=== PATIENT | male | born 1980 | race Caucasian/White ===

== ENCOUNTER 2018-07-26 10:17 | Emergency (ER) | payer OTHER ==
[~2018-07-26] VITALS: Ht 172.7 cm; Wt 99.8 kg
[~2018-07-26 10:17] MED LIST: CLON.5 PO; CLON1; CRUTCH3 USE; DICL100ER PO; DOXY100 PO; FEXPSEER; GABA300; HYDACE5; IBUP800 PO; KETAMINE; LAMO25 PO; MECL25 PO; MOMENI; NAPR550 PO; NASAL SPRAY; OXYACE5T PO; RXOXYACE PO; Robaxin500 MG PO; TIZA4
[2018-07-26] MEDS ORDERED: Triamterene W/1 EACH (10:28)
[2018-07-26] MEDS ORDERED: OXYMORPHONE HCL10 MG PO ×2 (10:28→10:38)
[2018-07-26] MEDS ORDERED: Oxcarbazepine300 MG PO (10:29)
[2018-07-26] MEDS ORDERED: DULO60 (10:29)
[2018-07-26] MEDS ORDERED: OXYMORPHONE HCL10 M1 PO (10:38)
== END 2018-07-26 10:54 | disposition home or self-care (01) ==
LOC: ER 10:17
DX: G50.0 Trigeminal neuralgia (principal); Z76.0 Encounter for issue of repeat prescription; Z88.8 Allergy status to other drugs, medicaments and biological substances; Z79.899 Other long term (current) drug therapy; Z79.891 Long term (current) use of opiate analgesic
CPT/HCPCS: J3010

== ENCOUNTER 2021-02-23 13:16 | Emergency (ER) | payer BC ==
[~2021-02-23] VITALS: Ht 172.7 cm; Wt 95.2 kg
[~2021-02-23 13:16] MED LIST changes: +DULO60; +OXYMORPHONE HCL10 M1 PO; +OXYMORPHONE HCL10 MG PO; +Oxcarbazepine300 MG PO; +Triamterene W/1 EACH
[2021-02-23 14:44] LABS: BASOPHILS PERCENT AUTO 1 % (0-2); EOSINOPHILS ABSOLUTE AUTO 0.24 K/mm3 (0.00-0.68); EOSINOPHILS PERCENT AUTO 1 % (0-6); Hemoglobin 13.8 g/dL (13.5-17.5); IMMATURE GRAN ABSOLUTE AUTO 0.09 K/mm3 (0.00-0.10); IMMATURE GRAN PERCENT AUTO 1 % (0-1); LYMPHOCYTES ABSOLUTE AUTO 1.35 K/mm3 (0.84-5.20); LYMPHOCYTES PERCENT AUTO 8 % (21-46); MONOCYTES ABSOLUTE AUTO 0.66 K/mm3 (0.16-1.47); MONOCYTES PERCENT AUTO 4 % (4-13); Mean Corpuscular HGB 28.5 pg (26.0-34.0); Mean Corpuscular HGB Conc 32.1 g/dL (31.5-36.5); Mean Corpuscular Volume 89 fL (80-100); Mean Platelet Volume 10.4 fL (9.1-12.4); NEUTROPHILS ABSOLUTE AUTO 14.67 K/mm3 (1.96-9.15); NEUTROPHILS PERCENT AUTO 86 % (41-73); Platelet Count 268 K/mm3 (150-400); RDW Coefficient Variation 14.5 % (11.7-14.2); RDW Standard Deviation 47.8 fL (35.1-46.3); Red Blood Cell Count 4.84 M/mm3 (4.30-5.90); White Blood Cell Count 17.11 K/mm3 (4.00-11.30)
[2021-02-23 14:56] LABS: Albumin, Blood 3.5 g/dL (3.4-5.0); Albumin/Globulin Ratio 1.1 (0.8-1.8); Bilirubin, Total 0.4 mg/dL (0.1-1.0); Bun/Creatinine Ratio 15.6 (12.0-20.0); Calcium, Blood 8.8 mg/dL (8.5-10.1); Creatinine, Blood 1.41 mg/dL (0.60-1.20); Globulin, Blood 3.2 g/dL (2.2-4.0); Potassium, Blood 3.1 mmol/L (3.5-5.5); Total Protein, Blood 6.7 g/dL (6.4-8.2)
== END 2021-02-23 17:05 | disposition home or self-care (01) ==
LOC: ER 13:16
PROVIDERS: Physician Assistant
DX: T40.2X1A Poisoning by other opioids, accidental (unintentional), initial encounter (principal); G50.0 Trigeminal neuralgia; E87.6 Hypokalemia; E86.0 Dehydration; I10 Essential (primary) hypertension; F17.200 Nicotine dependence, unspecified, uncomplicated; Z88.8 Allergy status to other drugs, medicaments and biological substances; Z79.899 Other long term (current) drug therapy
CPT/HCPCS: 36415; 80053; 85025; 93005; 93010; 96360; 99285-25; A9270; J7030

== ENCOUNTER 2023-03-17 08:09 | Emergency (ER) | payer BC ==
[~2023-03-17] VITALS: Ht 172.7 cm; Wt 89.8 kg
[2023-03-17 10:32] VITALS: BP 200/101
== END 2023-03-17 10:21 | disposition home or self-care (01) ==
LOC: ER 08:09
DX: H16.133 Photokeratitis, bilateral (principal); I10 Essential (primary) hypertension; F17.200 Nicotine dependence, unspecified, uncomplicated; W89.8XXA Exposure to other man-made visible and ultraviolet light, initial encounter; Z88.8 Allergy status to other drugs, medicaments and biological substances; Z79.899 Other long term (current) drug therapy
CPT/HCPCS: 99283; A9270

== ENCOUNTER 2023-11-16 15:18 | Emergency (ER) | payer BC ==
[~2023-11-16] VITALS: Ht 172.7 cm; Wt 88.5 kg
[2023-11-16 16:24] LABS: Albumin, Blood 4.1 g/dL (3.4-5.0); Bilirubin, Total 0.3 mg/dL (0.1-1.0); Bun/Creatinine Ratio 10.2 (12.0-20.0); Creatinine, Blood 1.28 mg/dL (0.60-1.20); Globulin, Blood 4.2 g/dL (2.2-4.0); Total Protein, Blood 8.3 g/dL (6.4-8.2)
[2023-11-16 16:30] LABS: BASOPHILS ABSOLUTE AUTO 0.06 K/mm3 (0.00-0.23); BASOPHILS PERCENT AUTO 1 % (0-2); EOSINOPHILS ABSOLUTE AUTO 0.21 K/mm3 (0.00-0.68); EOSINOPHILS PERCENT AUTO 3 % (0-6); Hematocrit 43.9 % (37.0-53.0); Hemoglobin 14.8 g/dL (13.5-17.5); IMMATURE GRAN ABSOLUTE AUTO 0.02 K/mm3 (0.00-0.10); IMMATURE GRAN PERCENT AUTO 0 % (0-1); LYMPHOCYTES ABSOLUTE AUTO 1.03 K/mm3 (0.84-5.20); LYMPHOCYTES PERCENT AUTO 13 % (21-46); MONOCYTES ABSOLUTE AUTO 0.47 K/mm3 (0.16-1.47); MONOCYTES PERCENT AUTO 6 % (4-13); Mean Corpuscular HGB 27.9 pg (26.0-34.0); Mean Corpuscular HGB Conc 33.7 g/dL (31.5-36.5); Mean Corpuscular Volume 83 fL (80-100); NEUTROPHILS ABSOLUTE AUTO 5.87 K/mm3 (1.96-9.15); NEUTROPHILS PERCENT AUTO 77 % (41-73); RDW Coefficient Variation 13.7 % (11.7-14.2); RDW Standard Deviation 41.3 fL (35.1-46.3); Red Blood Cell Count 5.31 M/mm3 (4.30-5.90); White Blood Cell Count 7.66 K/mm3 (4.00-11.30)
[2023-11-16 16:44] LABS: Mean Platelet Volume 10.3 fL (9.1-12.4); Platelet Count 270 K/mm3 (150-400)
[2023-11-16] MEDS ORDERED: Potassium Chloride 20 MEQ/15 ML UDC PO ONE (16:50)
[2023-11-16] MEDS ORDERED: Labetalol HCL 5 MG/ML 4ML Injection (Single Dose) IV ONE ×2 (18:00→18:30)
[2023-11-16 19:56] VITALS: BP 183/104
[2023-11-16] MEDS ORDERED: DYAZIDE 37.5-21 EACH PO (20:04)
== END 2023-11-16 19:59 | disposition home or self-care (01) ==
LOC: ER 15:18
PROVIDERS: Physician Assistant
DX: I16.1 Hypertensive emergency (principal); I10 Essential (primary) hypertension; Z88.8 Allergy status to other drugs, medicaments and biological substances; Z79.899 Other long term (current) drug therapy
CPT/HCPCS: 70450; 71046; 80053; 82140; 84484; 85025; 93005; 93010; 96374; 96376; 99284-25; A9270

== ENCOUNTER 2024-06-13 08:41 | Inpatient (IN) | payer BC ==
[~2024-06-13] VITALS: Ht 175.3 cm; Wt 83.9 kg
[~2024-06-13 08:41] MED LIST changes: +DYAZIDE 37.5-21 EACH PO
[2024-06-13] MEDS ORDERED: propofoL 100 ML IV ONE (08:55)
[2024-06-13] MEDS ORDERED: propofoL 100 ML IV SCH ×2 (08:55→12:40)
[2024-06-13 09:05] LABS: Hematocrit 43.2 % (37.0-53.0); Hemoglobin 12.9 g/dL (13.5-17.5); Mean Corpuscular HGB 28.2 pg (26.0-34.0); Mean Corpuscular HGB Conc 29.9 g/dL (31.5-36.5); Mean Corpuscular Volume 95 fL (80-100); Mean Platelet Volume 10.8 fL (9.1-12.4); NRBC ABSOLUTE 0.07 K/mm3 (0.00-0.02); NRBC Auto 0.5 /100 WBC (0.0-0.2); Platelet Count 252 K/mm3 (150-400); RDW Coefficient Variation 15.9 % (11.7-14.2); RDW Standard Deviation 55.6 fL (35.1-46.3); Red Blood Cell Count 4.57 M/mm3 (4.30-5.90); White Blood Cell Count 14.33 K/mm3 (4.00-11.30)
[2024-06-13 09:08] LABS: Base Excess Venous -14.5 mmol/L; Bicarbonate Venous 13.1 mmol/L (24.0-30.0); PCO2 Venous 68.2 mmHg (38-42); pH Blood Venous 6.99 (7.34-7.37)
[2024-06-13 09:23] LABS: Acetaminophen, Random <2.0 ug/mL (10.0-30.0); Alanine Aminotransfer (ALT/SGP 214 U/L (12-78); Albumin, Blood 2.9 g/dL (3.4-5.0); Alk Phos 100 U/L (50-136); Anion Gap 20 mmol/L (3-11); Aspartate Aminotrans (AST/SGOT 233 U/L (12-37); Bilirubin, Total 0.2 mg/dL (0.1-1.0); Blood Urea Nitrogen 17 mg/dL (8-24); Bun/Creatinine Ratio 10.1 (12.0-20.0); CO2, Blood 20 mmol/L (21-32); Calcium, Blood 8.3 mg/dL (8.5-10.1); Chloride, Blood 107 mmol/L (98-108); Creatinine, Blood 1.68 mg/dL (0.60-1.20); Glomerular Filtration Rate 50 (60-); Glucose, Blood 318 mg/dL (70-99); Potassium, Blood 3.1 mmol/L (3.5-5.5); Salicylate <1.7 mg/dL (2.8-20.0); Sodium, Blood 144 mmol/L (136-145); Total Protein, Blood 5.9 g/dL (6.4-8.2)
[2024-06-13 09:28] LABS: BAND PERCENT MAN 3 % (0-8); BASOPHILS ABSOLUTE MAN 0.14 K/mm3 (0.00-0.23); BASOPHILS PERCENT MAN 1 % (0-2); EOSINOPHILS ABSOLUTE MAN 0.57 K/mm3 (0.00-0.68); EOSINOPHILS PERCENT MAN 4 % (0-6); LYMPHOCYTES % ATYPICAL MANUAL 1 % (0-0); LYMPHOCYTES ABSOLUTE MAN 10.46 K/mm3 (0.84-5.20); LYMPHOCYTES PERCENT MAN 72 % (21-46); MONOCYTES ABSOLUTE MAN 0.42 K/mm3 (0.16-1.47); MONOCYTES PERCENT MAN 3 % (4-13); NEUTROPHILS ABSOLUTE MAN 2.72 K/mm3 (1.96-9.15); SEG NEUTROPHILS PERCENT MAN 16 % (41-73); TOTAL CELLS COUNTED 100
[2024-06-13 10:20] LABS: PCO2 Arterial 40.6 mmHg (35-45); PO2 Arterial 92.2 mmHg (80-100)
[2024-06-13 10:21] LABS: pH Blood Arterial 7.28 (7.35-7.45)
[2024-06-13] MEDS ORDERED: MANNITOL IV SCH (10:25)
[2024-06-13] MEDS ORDERED: MANNITOL IV ONE (10:30)
[2024-06-13] MEDS ORDERED: FentaNYL Citrate 50 MCG/ML 2 ML Injection ONE (11:31)
[2024-06-13] MEDS ORDERED: FentaNYL Citrate 50 MCG/ML 2 ML Injection IV ONE (11:35)
[2024-06-13 11:41] LABS: U Amphetamine Screen DETECTED; U Barbituate Screen Not Detected; U Benzodiazapine Screen Not Detected; U Buprenorphine Screen Not Detected; U Cannabinoids Screen Not Detected; U Cocaine Screen Not Detected; U Methadone Screen DETECTED; U Methamphetamine Screen DETECTED; U Opiates Screen Not Detected; U Oxycodone Screen Not Detected; U Phencyclidine Screen Not Detected
[2024-06-13 11:45] VITALS: BP 206/145
[2024-06-13] MEDS ORDERED: Morphine Sulfate 4 MG/1 ML Injection ONE (12:04)
[2024-06-13] MEDS ORDERED: LORazepam 2 MG/ML 1ML Injection ONE (12:05)
[2024-06-13] MEDS ORDERED: FLU VACC TS2024-25(6MOS UP)/PF 45 MCG/0.5 ML SYRINGE IM SCH (12:15)
[2024-06-13] MEDS ORDERED: Acetaminophen 650 MG Supp PR PRN ×2 (12:15→12:30)
[2024-06-13] MEDS ORDERED: Ondansetron HCl 2 MG / ML 2ML Vial IV PRN ×2 (12:15→12:30)
[2024-06-13] MEDS ORDERED: Morphine Sulfate 10 MG/ML 1MLSYR IV PRN ×2 (12:20→12:30)
[2024-06-13] MEDS ORDERED: Atropine Sulfate 1% Opth Soln 2ML BTL SL PRN ×2 (12:20→12:30)
[2024-06-13] MEDS ORDERED: Promethazine HCl 25 MG Supp PR PRN ×2 (12:20→12:25)
[2024-06-13] MEDS ORDERED: LORazepam 2 MG/ML 1ML Injection IV PRN ×2 (12:20→12:35)
[2024-06-13] MEDS ORDERED: Morphine Sulfate 10 MG/ML 1MLSYR INH PRN ×2 (12:20→12:30)
[2024-06-13] MEDS ORDERED: Morphine Sulfate 20 MG/1ML 1 ML Oral Syringe SL PRN ×2 (12:20→13:25)
[2024-06-13] MEDS ORDERED: Scopolamine Hydrobromide Patch TOP PRN ×2 (12:25→12:30)
[2024-06-13] MEDS ORDERED: HYDROmorphone HCl/Pf 1MG SYR IV PRN (12:25)
[2024-06-13] MEDS ORDERED: Haloperidol Lactate Inj. 5 MG/ML Injection IV PRN (12:25)
[2024-06-13] MEDS ORDERED: FentaNYL 25 MCG Patch TOP SCH (12:30)
[2024-06-13] MEDS ORDERED: OxyCODONE HCL 1 MG/ML 5MLUDC PO PRN (12:45)
[2024-06-13] MEDS ORDERED: Morphine Sulfate 10 MG/ML 1MLSYR IV ONE (12:50)
[2024-06-13] MEDS ORDERED: LORazepam 2 MG/ML 1ML Injection IV ONE (12:50)
--- NOTE | 2024-06-13 16:21 | NUR ---
Patient is anganol breathing and pt's So, Leila, and Mother, Alba are bedside and showing signs of anticipatory grief. I conduct a life review of patient, and provided encourgement and prayer. I returned later, after the patient had with Professor Of Geology Herminio and provided grief support and prayer. Alba was very tearful and expressed emotional anger, with good effect and showing signs of being comforted.
[2024-06-13] MEDS ORDERED: Rocuronium Bromide 10 MG/ML 5ML Injection IV ONE (17:28)
[2024-06-13] MEDS ORDERED: Etomidate 2MG / ML 10ML Vial IV ONE (17:28)
--- NOTE | 2024-06-13 17:31 | NUR ---
PALLIATIVE / END OF LIFE SUPPORT TO PATIENT AND FAMILY. CALLED TO ROOM S/P EXTUBATION FROM VENTILATOR FOR ADDT'L SUPPORT. FAMILY IS AT BEDSIDE. COMFORT QUILT PROVIDED. PT NOTED TO HAVE AGONAL BREATHING, PALLOR, AGGITATION. PRIMARY RN AT BEDSIDE TO ADMINISTER PRN MEDICATIONS PER EMAR. THIS PC RN CALLED TO REQUEST ROXANOL. ORDER OBTAINED. GENTLE EDUCATION PROVIDED ON EOL S/SX AND MANAGEMENT OPTIONS. FAMILY EXPRESSED GRATITUDE FOR THE CARES PT HAS RCV'D. THIS PC RN NOTED ASYSTOLE ON PASSENGER RELATIONS REPRESENTATIVE AND THE ABSENCCE OF RESPIRATIONS AT 1428. PROVIDER AT BEDSIDE CONFIRMED TOD 06/13/24 @ 1428. FAMILY CHOSE [facility] FOR POST MORTUM CARES.
[2024-06-13] MEDS ORDERED: Naloxone HCL 0.4 MG/ML 1MLSYR IV ONE (19:57)
== END 2024-06-13 15:45 | DRG 917 ==
LOC: ER 08:41 → ERHOLD 12:10
PROVIDERS: Student in an Organized Health Care Education/Training Program; ADMIT Hospitalist
PROC: 0BH17EZ Insertion of Endotracheal Airway into Trachea, Via Natural or Artificial Opening (ICD-10-PCS; principal; 2024-06-13)
PROC: 5A1935Z Respiratory Ventilation, Less than 24 Consecutive Hours (ICD-10-PCS; 2024-06-13)
PROC: 5A12012 Performance of Cardiac Output, Single, Manual (ICD-10-PCS; 2024-06-13)
PROC: 4A033R1 Measurement of Arterial Saturation, Peripheral, Percutaneous Approach (ICD-10-PCS; 2024-06-13)
DX: T40.411A Poisoning by fentanyl or fentanyl analogs, accidental (unintentional), initial encounter (principal); G93.6 Cerebral edema; I16.1 Hypertensive emergency; F17.210 Nicotine dependence, cigarettes, uncomplicated; E87.6 Hypokalemia; Z66 Do not resuscitate; I46.8 Cardiac arrest due to other underlying condition; I10 Essential (primary) hypertension; Z51.5 Encounter for palliative care; G50.0 Trigeminal neuralgia; X58.XXXA Exposure to other specified factors, initial encounter; Z79.899 Other long term (current) drug therapy; Z79.891 Long term (current) use of opiate analgesic; Z98.890 Other specified postprocedural states; Z88.8 Allergy status to other drugs, medicaments and biological substances
CPT/HCPCS: 31500; 36600; 51702; 70450; 71045; 80053; 82803; 83880; 84484; 85025; 92950; 93005; 93010; 94002; 96365-59; 96375-59; 99285-25; A9270; G0480; J1630; J2060; J2270; J2310; J2704; J3010